=== PATIENT | male | born 1960 | race Caucasian/White ===

== ENCOUNTER 2022-10-11 10:22 | Outpatient (RCR) | payer OTHER, SELFPAY ==
--- NOTE | 2022-10-11 11:10 | PTOPEVAL1 ---
Assessment and note entered by JT File, PT Evaluation Information Assessment Status Evaluation Diagnosis R RTC repair Onset 09/04/22 Subjective Information patient reports he had surgery on 09/04/22 for a RTC repair. he reports he injured the shoulder most recently before than in March of 2022. he reports he ust got out of the sling on friday of this week. he reports he was told not to reach out away from his body and lift weight. he reports he was told not to reach behind the back. he reports the shoulder does not hury. he reports he is retired. Reported Pain Level Pain Score 0: Self Report Assessment PT Clinical Summary mr. pickard presents to skilled PT services for evaluation and treatment of pain, decreased rom, and decreased strength in the R shoulder following R RTC repair. he is currently in phase 2 of his rehab and ready to begin aarom and arom. he would benefit from skilled PT services to address his objective/functional deficits and progress towards a return to his prior level functional activity performance/quality of life. Plan of Care Interventions Electrical Stimulation,Hot Pack/Cold Pack,Manual Therapy,Neuro Re-education,Patient/Caregiver Educati,Therapeutic Activities,Therapeutic Exercise PT Services Indicated Yes Treatment Frequency and 2x weekly for 8 visits Duration These treatments will address the objective and functional deficits as defined above. The patient will be advanced safely and appropriately in order for the patient to progress towards his/her prior level of function. Additional exercises will be introduced and as well as a comprehensive home exercise program upon discharge, if needed, ?to ensure carryover of functional gains achieved in the clinic. This treatment plan has been reviewed and agreement upon by the patient.
--- NOTE | 2022-11-05 11:47 | PTOPREEVAL ---
Assessment and note entered by JT File, PT Evaluation Information Assessment Status Re-evaluation Diagnosis R RTC repair Onset 09/04/22 Subjective Information patient reports he had surgery on 09/04/22 for a RTC repair. he reports he injured the shoulder most recently before than in March of 2022. he reports he ust got out of the sling on friday of this week. he reports he was told not to reach out away from his body and lift weight. he reports he was told not to reach behind the back. he reports the shoulder does not hury. he reports he is retired. Reported Pain Level Pain Score 2,0: Self Report Assessment PT Clinical Summary mr. pickard presents to skilled PT services for his 8th skilled therapy visit post arthroscopic RTC repair of the R shoulder. as of this date, he presents with improved rom, decreased pain, and improved quality of life thus far. however, he still presents with deficits in R shoulder IR mobility, strength of the R shoulder, and funcitonal lifting. he has made progress towards all goals, and met several based on rom and HEP performance. he would benefit continued skilled PT to achieve his remaining goals, and to progress to strengthening exercises/program to achieve his new goals. patient will hold therapy until he returns from vacation and follow up with [facility]. Plan of Care Interventions Electrical Stimulation,Hot Pack/Cold Pack,Manual Therapy,Neuro Re-education,Patient/Caregiver Educati,Therapeutic Activities,Therapeutic Exercise PT Services Indicated Yes Treatment Frequency and continue skilled PT 2x weekly for 6 more visits Duration with addition of strengthening exercises These treatments will address the objective and functional deficits as defined above. The patient will be advanced safely and appropriately in order for the patient to progress towards his/her prior level of function. Additional exercises will be introduced and as well as a comprehensive home exercise program upon discharge, if needed, ?to ensure carryover of functional gains achieved in the clinic. This treatment plan has been reviewed and agreement upon by the patient.
--- NOTE | 2022-11-25 08:54 | PTOPREEVAL ---
Assessment and note entered by María Elena Soriano DPT Evaluation Information Assessment Status Re-evaluation Diagnosis R RTC repair Onset 09/04/22 Subjective Information Patient returns today after being on vacation. Patient reports he feels like his shoulder continues to improve but feels like he needs to improve his strength. He reports he went to [facility] last week and they were happy with progress. He reports he returns in 6 weeks. Reported Pain Level Pain Score 0,0: Self Report Assessment PT Clinical Summary mr. pickard presents to skilled PT services today following a vacation in which he was unable to attend PT. Patient demonstrates improvement in ROM and strength of the R shoulder today. He has new orders from [facility] for strengthening for 2-3x/wl x 3 weeks. He would benefit from continued skilled PT to address remaining impairments and return to heavy house hold tasks at [facility]. Plan of Care Interventions Electrical Stimulation,Hot Pack/Cold Pack,Manual Therapy,Neuro Re-education,Patient/Caregiver Educati,Therapeutic Activities,Therapeutic Exercise PT Services Indicated Yes Treatment Frequency and continue skilled PT 2-3x weekly for 9 more visits Duration with addition of strengthening exercises These treatments will address the objective and functional deficits as defined above. The patient will be advanced safely and appropriately in order for the patient to progress towards his/her prior level of function. Additional exercises will be introduced and as well as a comprehensive home exercise program upon discharge, if needed, ?to ensure carryover of functional gains achieved in the clinic. This treatment plan has been reviewed and agreement upon by the patient.
--- NOTE | 2022-12-11 09:26 | PTOPDC ---
Assessment and note entered by JT File, PT Evaluation Information Assessment Status Discharge Diagnosis R RTC repair Onset 09/04/22 Subjective Information patient reports he feels great today. he reports he has no pain in the R shoulder, but reports the L shoulder still is very weak and painful. he reports he is not able to have the L shoulder operated on until late this year/early next year. Reported Pain Level Pain Score 3,0: Self Report Assessment PT Clinical Summary mr. pickard presents to skilled PT for his 14th skilled therapy visit today. he has met over 90% of goals as of this date. he continues to present with weakness and decreased mm endurance of the R shoulder, but will continue to work on this independently at home. he will DC skilled PT today . Plan of Care PT Services Indicated Yes
== END 2022-12-11 15:03 | disposition home or self-care (01) ==
LOC: CHSPT 10:22
PROVIDERS: Visit Provider Orthopaedic Surgery Hand Surgery
DX: M75.101 Unspecified rotator cuff tear or rupture of right shoulder, not specified as traumatic (principal)
CPT/HCPCS: 97014; 97110; 97112; 97140; 97161; 97530; G0283